=== PATIENT | male | born 1970 | race Caucasian/White ===

== ENCOUNTER 2020-07-23 10:43 | Day surgery (SDC) | payer MEDICAID ==
[~2020-07-23] VITALS: Ht 170.2 cm; Wt 70.3 kg
[2020-07-23] MEDS ORDERED: OMEP40EC24 PO (11:59)
[2020-07-23] MEDS ORDERED: MIDAZOLAM 5 MG/5 ML VIAL ONE (12:39)
[2020-07-23] MEDS ORDERED: fentaNYL citrate 0.05 MG/ML VIAL ONE (12:39)
[2020-07-23] MEDS ORDERED: LIDOCAINE 2% 100 MG/5 ML UJET TP ONE (12:40)
[2020-07-23] MEDS ORDERED: fentaNYL citrate 0.05 MG/ML VIAL IVP ONE (15:25)
[2020-07-23] MEDS ORDERED: MIDAZOLAM 2 MG/2 ML VIAL IVP ONE (15:25)
== END 2020-07-23 13:45 | disposition home or self-care (01) ==
LOC: MDS 10:43 → MMU 10:59 → MDS 13:45
PROVIDERS: ATTEND Internal Medicine Gastroenterology
DX: K62.5 Hemorrhage of anus and rectum (principal); D12.4 Benign neoplasm of descending colon; I10 Essential (primary) hypertension; Z79.899 Other long term (current) drug therapy
CPT/HCPCS: 45385; 88305; J2250; J3010